=== PATIENT | male | born 1955 | race Caucasian/White ===

== ENCOUNTER → 2017-08-19 | Outpatient (CLI) | payer BC ==
--- NOTE | 2017-08-20 09:47 | TR ---
Date Performed: 08/19/2017 Time Performed: 09:45:51 DOCTOR: Maximo Newton DRUG LIST: CLINICAL HISTORY: REASON FOR TEST: STRESS TEST REASON FOR ENDING: OBSERVATION: CONCLUSION: PATIENT EXERCISED FOR 6 MIN 2 SEC REACHING A MAX HEART RATE OF 156 BPM OR 100% PREDI CTED WITH NO SYMPTOMS TO SUGGEST ISCHEMIA. HOWEVER HE DEVELOPED J POINT DEPRESSION WITH UP SLOPING S T SEGMENTS SUGGESTIVE BUT NOT DIAGNOSTIC OF ISCHEMIA. THIS WAS A NEGATIVE TEST BUT J POINT CHANGES S UGGEST THE CONSIDERATION OF FURTHER EVALUATION. COMMENTS:
== END ==
LOC: HCAV 09:13
PROVIDERS: ATTEND Internal Medicine Interventional Cardiology
DX: Z13.6 Encounter for screening for cardiovascular disorders (principal)
CPT/HCPCS: 93017